=== PATIENT | female | born 1965 ===

== ENCOUNTER 2020-02-06 10:14 | Inpatient (IN) | payer SELFPAY ==
[~2020-02-06] VITALS: Ht 147 cm; Wt 98.6 kg
--- OUTSIDE RECORDS SUMMARY | 2020-02-06 10:34 | XMS REPORT | Continuity of Care Document ---
Author Organization Unknown Address Unknown Phone Unavailable Allergies There is no data. Medications There is no data. Problems There is no data. Procedures There is no data. Results Test Result Range [facility] - 05/03/19 13:16 GLUCOSE 376 mg/dL 65-99 UREA NITROGEN (BUN) 9 mg/dL 7-25 CREATININE 0.64 mg/dL 0.50-1.05 eGFR NON-AFR. COMORAN 103 mL/min/1.73m2 > OR = 60 eGFR 119 mL/min/1.73m2 > OR = 60 BUN/CREATININE RATIO NOT APPLICABLE (calc) 6-22 SODIUM 137 mmol/L 135-146 POTASSIUM 4.1 mmol/L 3.5-5.3 CHLORIDE 103 mmol/L 98-110 CARBON DIOXIDE 27 mmol/L 20-32 CALCIUM 9.5 mg/dL 8.6-10.4 PROTEIN, TOTAL 6.9 g/dL 6.1-8.1 ALBUMIN 4.5 g/dL 3.6-5.1 GLOBULIN 2.4 g/dL (calc) 1.9-3.7 ALBUMIN/GLOBULIN RATIO 1.9 (calc) 1.0-2. 5 BILIRUBIN, TOTAL 0.9 mg/dL 0.2-1.2 ALKALINE PHOSPHATASE 101 U/L 33-130 AST 20 U/L 10-35 ALT 21 U/L 6-29 Encounters ACCT No. Visit Date/Time Discharge Status Pt. Type Provider Facility Loc./Unit Complaint [id number] 01/30/2020 12:30:00 01/30/2020 23:59: 59 CLS Outpatient NABEEL FREEMAN [facility] [id number] 05/03/2019 12:20:00 Document Registration
[2020-02-06] MEDS ORDERED: LACTATED RINGERS 1,000 ML IV STA (10:52)
[2020-02-06 10:59] LABS: BASOPHILS % (AUTO) 0 % (0-10); EOSINOPHILS # (AUTO) 0.2 10^3/uL (0.0-0.3); EOSINOPHILS % (AUTO) 2 % (0-10); HEMATOCRIT 44 % (35-52); HEMOGLOBIN 15.6 G/DL (11.5-16.0); LYMPHOCYTES # (AUTO) 1.5 X 10^3 (1.0-4.0); LYMPHOCYTES % (AUTO) 19 % (12-44); MEAN CORPUSCULAR HEMOGLOBIN 29 PG (25-34); MEAN CORPUSCULAR HGB CONC 36 G/DL (32-36); MEAN CORPUSCULAR VOLUME 81 FL (80-99); MEAN PLATELET VOLUME 11.2 FL (7.4-10.4); MONOCYTES # (AUTO) 0.8 X 10^3 (0.0-1.0); MONOCYTES % (AUTO) 10 % (0-12); NEUTROPHILS # (AUTO) 5.5 X 10^3 (1.8-7.8); NEUTROPHILS % (AUTO) 69 % (42-75); PLATELET COUNT 347 10^3/uL (130-400); RED CELL DISTRIBUTION WIDTH 12.9 % (10.0-14.5); WHITE BLOOD COUNT 7.9 10^3/uL (4.3-11.0)
--- NOTE | 2020-02-06 10:59 | ED General ---
General Chief Complaint: Glucose Problems Stated Complaint: COVID-19+ Nursing Triage Note: ARRIVED VIA WC TO [facility] ER. PT IS A KNOWN POSITIVE ET WAS TESTED ON January OR . FOR THE PAST WEEK SHE HAS HAD TROUBLE WITH HER BLOOD SUGARS BEING HIGH ALONG WITH N/V. PT DOES NOT SPEAK ROMANIAN ET LANGUAGE LINE USED. Nursing Sepsis Screen: No Definite Risk Source of Information: Patient, [employer] Counter Associate Exam Limitations: Language Barrier History of Present Illness Date Seen by Provider: Feb 06, 2020 Time Seen by Provider: 10:41 Initial Comments Here with report of nausea, vomiting and weakness as well as trouble with her blood sugars. She was referred from [facility] to here for concerns of uncontrolled blood sugar. Patient is known to be COVID-19 positive from testing done on January 29. She denies breathing problems but does report weakness and vomiting. Decreased urination recently and decreased bowel movement as well. She was seen at [facility] on 29 January through 30 January. Currently only taking ondansetron. Unsure if she is taking anything for her diabetes as patient stated she had all of her meds with her. All information via elementary supervisor line. Complains of allover body aches. Timing/Duration: 1 Week, Getting Worse Severity: Moderate Modifying Factors: improves with Medication Associated Systoms: No Chest Pain, No Cough, No Fever/Chills; Nausea/Vomiting; No Shortness of Air; Weakness Allergies and Home Medications Allergies Coded Allergies: No Known Drug Allergies (Unverified , 02/06/20) Home Medications Lisinopril/Hydrochlorothiazide 1 Each Tablet, 1 EACH PO DAILY, (Reported) Patient Home Medication List Home Medication List Reviewed: Yes Review of Systems Review of Systems Constitutional: see HPI; No chills, No fever EENTM: No nose congestion, No throat pain Respiratory: No cough, No short of breath Cardiovascular: No chest pain, No edema Gastrointestinal: abdominal pain, constipation, nausea, vomiting Genitourinary: no symptoms reported Musculoskeletal: back pain, muscle pain Skin: no symptoms reported Psychiatric/Neurological: Headache, Weakness Hematologic/Lymphatic: No Symptoms Reported All Other Systems Reviewed Negative Unless Noted: Yes Past Gcisjpi-Acwfmx-Wqlrln Hx Patient Social History Recent Foreign Travel: No Contact w/Someone Who Travel: No Recent Infectious Disease Expo: No Past Medical History Surgeries: No Respiratory: No Cardiac: No Neurological: No Gastrointestinal: No Musculoskeletal: No Endocrine: Yes Diabetes, Non-Insulin dep Family Medical History Reviewed Nursing Family Hx No Pertinent Family Hx Physical Exam-Suspected Sepsis Physical Exam Vital Signs Vital Signs - First Documented 02/06/20 10:35 Temp 36.2 Pulse 93 Resp 18 B/P (MAP) 141/87 (105) Pulse Ox 100 O2 Delivery Room Air Capillary Refill : Less Than 3 Seconds Blood Pressure Mean: 105 Height, Weight, BMI Height: '" Weight: lbs. oz. kg; 49.00 BMI Method: General Appearance: WD/WN HEENT: PERRL/EOMI, Pharynx Normal Neck: Non Tender, Supple Respiratory: Lungs Clear, Normal Breath Sounds Cardiovascular: Regular Rate, Rhythm, No Murmur Gastrointestinal: Non Tender, Soft Back: Normal Inspection, No CVA Tenderness, No Vertebral Tenderness Extremity: Normal Range of Motion, Non Tender Neurologic/Psychiatric: Alert, Oriented x3 Skin: normal color, warm/dry Focused Exam Lactate Level 02/06/20 10:40: Lactic Acid Level 1.50 Lactic Acid Level Laboratory Tests Test 02/06/20 10:40 Lactic Acid Level 1.50 MMOL/L (0.50-2.00) Progress/Results/Core Measures Suspected Sepsis Recent Fever Within 48 Hours: No Infection Criteria Present: Suspected New Infection New/Unexplained Altered Menta: No Sepsis Screen: No Definite Risk SIRS Temperature: Pulse: 93 Respiratory Rate: 18 Laboratory Tests 02/06/20 10:40: White Blood Count 7.9 Blood Pressure 141 /87 Mean: 105 02/06/20 10:40: Lactic Acid Level 1.50 Laboratory Tests 02/06/20 10:40: Creatinine 0.97, INR Comment 1.0, Platelet Count 347, Total Bilirubin 1.3H Results/Orders Lab Results Laboratory Tests Test 02/06/20 10:40 02/06/20 11:28 02/06/20 11:38 Range/Units White Blood Count 7.9 4.3-11.0 10^3/uL Red Blood Count 5.45 4.35-5.85 10^6/uL Hemoglobin 15.6 11.5-16.0 G/DL Hematocrit 44 35-52 % Mean Corpuscular Volume 81 80-99 FL Mean Corpuscular Hemoglobin 29 25-34 PG Mean Corpuscular Hemoglobin Concent 36 32-36 G/DL Red Cell Distribution Width 12.9 10.0-14.5 % Platelet Count 347 130-400 10^3/uL Mean Platelet Volume 11.2 H 7.4-10.4 FL Neutrophils (%) (Auto) 69 42-75 % Lymphocytes (%) (Auto) 19 12-44 % Monocytes (%) (Auto) 10 0-12 % Eosinophils (%) (Auto) 2 0-10 % Basophils (%) (Auto) 0 0-10 % Neutrophils # (Auto) 5.5 1.8-7.8 X 10^3 Lymphocytes # (Auto) 1.5 1.0-4.0 X 10^3 Monocytes # (Auto) 0.8 0.0-1.0 X 10^3 Eosinophils # (Auto) 0.2 0.0-0.3 10^3/uL Basophils # (Auto) 0.0 0.0-0.1 10^3/uL Prothrombin Time 13.1 12.2-14.7 SEC INR Comment 1.0 0.8-1.4 Activated Partial Thromboplast Time 24 24-35 SEC Sodium Level 139 135-145 MMOL/L Potassium Level 3.5 L 3.6-5.0 MMOL/L Chloride Level 97 L 98-107 MMOL/L Carbon Dioxide Level 21 21-32 MMOL/L Anion Gap 21 H 5-14 MMOL/L Blood Urea Nitrogen 24 H 7-18 MG/DL Creatinine 0.97 0.60-1.30 MG/DL Estimat Glomerular Filtration Rate 60 BUN/Creatinine Ratio 25 Glucose Level 432 *H 70-105 MG/DL Lactic Acid Level 1.50 0.50-2.00 MMOL/L Calcium Level 9.4 8.5-10.1 MG/DL Corrected Calcium 9.4 8.5-10.1 MG/DL Total Bilirubin 1.3 H 0.1-1.0 MG/DL Aspartate Amino Transf (AST/SGOT) 25 5-34 U/L Alanine Aminotransferase (ALT/SGPT) 24 0-55 U/L Alkaline Phosphatase 94 40-136 U/L Total Protein 7.2 6.4-8.2 GM/DL Albumin 4.0 3.2-4.5 GM/DL Glucometer 352 H 70-110 MG/DL Urine Color YELLOW Urine Clarity CLEAR Urine pH 6.5 5-9 Urine Specific [place] 1.010 L 1.016-1.022 Urine Protein NEGATIVE NEGATIVE Urine Glucose (UA) 3+ H NEGATIVE Urine Ketones 3+ H NEGATIVE Urine Nitrite NEGATIVE NEGATIVE Urine Bilirubin 1+ H NEGATIVE Urine Urobilinogen 0.2 < = 1.0 MG/DL Urine Leukocyte Esterase NEGATIVE NEGATIVE Urine RBC (Auto) NEGATIVE NEGATIVE Urine RBC RARE /HPF Urine WBC 0-2 /HPF Urine Squamous Epithelial Cells 25-50 H /HPF Urine Crystals NONE /LPF Urine Bacteria FEW H /HPF Urine Casts NONE /LPF Urine Mucus NEGATIVE /LPF Urine Culture Indicated CULTURE PENDING My Orders Orders - JI WORRELL MD Cbc With Automated Diff (02/06/20 10:52) Comprehensive Metabolic Panel (02/06/20 10:52) Blood Culture (02/06/20 10:52) Sputum Culture (02/06/20 10:52) Urinalysis (02/06/20 10:52) Urine Culture (02/06/20 10:52) Protime With Inr (02/06/20 10:52) Partial Thromboplastin Time (02/06/20 10:52) Chest 1 View, Ap/Pa Only (02/06/20 10:52) Ed Iv/Invasive Line Start (02/06/20 10:52) Vital Signs Adult Sepsis Patie Q15M (02/06/20 10:52) O2 (02/06/20 10:52) Remove Rings In Anticipation O (02/06/20 10:52) Lactic Acid Analyzer (02/06/20 10:52) Ondansetron Injection (Zofran Injectio (02/06/20 11:00) Lactated Ringers (Lr 1000 Ml Iv Solution (02/06/20 10:52) Covid-19 External Lab Results (02/06/20 10:59) Ketorolac Injection (Toradol Injection) (02/06/20 11:14) Insulin (Regular) Human (Novolin R (Per (02/06/20 11:23) Lactated Ringers (Lr 1000 Ml Iv Solution (02/06/20 11:37) Dexamethasone Injection (Decadron Inject (02/06/20 12:15) Medications Given in ED Current Medications Medications Dose Ordered Sig/Angel Route Start Time Stop Time Status Last Admin Dose Admin Lactated Ringer's 1,000 ml @ 0 mls/hr Q0M ONCE IV 02/06/20 11:37 02/06/20 11:38 DC 02/06/20 11:40 0 MLS/HR Ondansetron HCl 4 mg ONCE ONCE IVP 02/06/20 11:00 02/06/20 11:01 DC 02/06/20 10:57 4 MG Vital Signs/I&O 02/06/20 10:35 Temp 36.2 Pulse 93 Resp 18 B/P (MAP) 141/87 (105) Pulse Ox 100 O2 Delivery Room Air Capillary Refill : Less Than 3 Seconds Blood Pressure Mean: 105 Progress Note : Progress Note Seen and evaluated. IV, labs, UA, blood cultures and lactic acid ordered. Patient is COVID-19 positive. She appears to be having difficulties with her blood sugar management although I'm not entirely sure what she is on for that as patient is poor historian and there is no indication by external medication history of usage of insulin or other anti-hyperglycemic agents. LR 1 L bolus, Zofran 4 mg IV and sepsis protocol initiated. Monitor patient. 1215: Labs review ed. UA does show 3+ ketones. Patient is still nauseated. She was given insulin 10 units subcutaneous and a second liter of LR as well as 30 mg of Toradol IV. I did discuss the case with Dr. Sagastume who was taking the COVID positive patient's. We both agree that patient would benefit from inpatient admission due to the persistent nausea and vomiting and uncontrolled blood sugars in the setting of COVID-19 infection. We will give Decadron 6 mg IV now. Patient also received Pepcid 20 mg IV for stomach upset. I did discuss findings and concerns with the patient via elementary supervisor line and she agrees with admission. Diagnostic Imaging Diagonstic Imaging: Xray Plain Films/CT/US/NM/MRI: chest Comments [facility]. [place], [place] NAME: BALA BECKER [facility] REC#: [id number] PT STATUS: REG ER : 1965 PHYSICIAN: JI WORRELL MD ADMIT DATE: 02/06/20/ER Draft Date of Exam:02/06/20 CHEST 1 VIEW, AP/PA ONLY INDICATION: Positive COVID. Time of exam: 11:10 AM No prior studies are available for comparison. The heart size is normal. The pulmonary vascularity is unremarkable. The lungs are clear. No infiltrate, effusion or pneumothorax is detected. IMPRESSION: No acute cardiopulmonary process is detected. Dictated on workstation # [id number] Dict: 02/06/20 1116 Trans: 02/06/20 1118 [facility] [id number] Interpreted by: SEMAJ CABRALES MD Electronically signed by: Reviewed: Reviewed by Me Departure Communication (Admissions) Time/Spoke to Admitting Phy: 12:15 Impression Primary Impression: Intractable nausea and vomiting Additional Impressions: Uncontrolled diabetes mellitus with hyperglycemia Qualified Codes: E11.65 - Type 2 diabetes mellitus with hyperglycemia Coronavirus infection COVID-19 positive Disposition: ADMITTED INPATIENT Condition: Stable Admissions Decision to Admit Reason: Admit from ER (General) Decision to Admit/Date: Feb 06, 2020 Time/Decision to Admit Time: 12:15 JI WORRELL MD Feb 06, 2020 10:59
[2020-02-06] MEDS ORDERED: ONDANSETRON 4 MG/2 ML (SDV) Z0FRAN IVP ONE (11:00)
[2020-02-06 11:04] LABS: PROTHROMBIN TIME PATIENT 13.1 SEC (12.2-14.7)
[2020-02-06] MEDS ORDERED: LISI1TAB25 PO (11:04)
[2020-02-06 11:05] LABS: POTASSIUM 3.5 MMOL/L (3.6-5.0)
[2020-02-06 11:06] LABS: CALCIUM 9.4 MG/DL (8.5-10.1)
[2020-02-06 11:07] LABS: TOTAL PROTEIN 7.2 GM/DL (6.4-8.2)
[2020-02-06 11:09] LABS: BILIRUBIN,TOTAL 1.3 MG/DL (0.1-1.0)
[2020-02-06 11:11] LABS: CREATININE SERUM 0.97 MG/DL (0.60-1.30)
[2020-02-06] MEDS ORDERED: KETOROLAC 30 MG/ML VIAL IVP STA (11:14)
--- NOTE | 2020-02-06 11:18 | Diagnostic Imaging Report ---
INDICATION: Positive COVID. Time of exam: 11:10 AM No prior studies are available for comparison. The heart size is normal. The pulmonary vascularity is unremarkable. The lungs are clear. No infiltrate, effusion or pneumothorax is detected. IMPRESSION: No acute cardiopulmonary process is detected. Dictated by: Dictated on workstation # [id number]
[2020-02-06] MEDS ORDERED: inSUlin (REGULAR) HUMAN 1 UNIT/0.01 ML (CHARGE PER UNIT) SC STA (11:23)
[2020-02-06] MEDS ORDERED: LACTATED RINGERS 1,000 ML IV ONE (11:37)
[2020-02-06 11:46] LABS: CLARITY,URINE CLEAR; COLOR,URINE YELLOW; GLUCOSE, URINE (UA) 3+ (NEGATIVE); KETONES,URINE 3+ (NEGATIVE); LEUKOCYTE ESTERASE ,URINE NEGATIVE (NEGATIVE); NITRITE,URINE NEGATIVE (NEGATIVE); PH,URINE 6.5 (5-9); PROTEIN,URINE NEGATIVE (NEGATIVE)
[2020-02-06 12:01] LABS: BILIRUBIN,URINE 1+ (NEGATIVE)
[2020-02-06 12:02] LABS: BACTERIA,URINE FEW /HPF; RBC,URINE RARE /HPF; SQUAMOUS EPITHELIAL CELL,UR 25-50 /HPF; WBC,URINE 0-2 /HPF
[2020-02-06] MEDS ORDERED: DEXAMETHASONE 10 MG/ML (DECADRON) 1 ML VIAL IV ONE (12:15)
--- NOTE | 2020-02-06 12:19 | NUR ---
TRICK RODEO RIDER CONTACTED FOR ROOM AND ORDERS FAXED TO [facility] AND REGISTRATION.
--- NOTE | 2020-02-06 12:27 | NUR ---
ATTEMPT TO CALL REPORT ET NURSE DID NOT ANSWER.
[2020-02-06] MEDS ORDERED: FAMOTIDINE 20MG/2ML IV (PEPCID) IVP ONE (12:30)
--- NOTE | 2020-02-06 12:35 | NUR ---
REPORT CALLED TO STEPHEN ON 4TH FLOOR.
[2020-02-06] MEDS ORDERED: fentaNYL INJECTION 100 MCG/2 ML AMP ONE (12:43)
--- NOTE | 2020-02-06 12:45 | NUR ---
DR NOTIFIED OF BP 152/100 AND THAT PT IS COMPLAINING OF ABD PAIN. NEW ORDERS RECIEVED.
[2020-02-06] MEDS ORDERED: fentaNYL INJECTION 100 MCG/2 ML AMP IVP STA (12:52)
--- NOTE | 2020-02-06 13:06 | NUR ---
PT'S BLOOD PRESSURE HAS DECREASED TO 147/89.
--- NOTE | 2020-02-06 13:35 | NUR ---
PT ADMITTED TO ROOM 432, POSITIVE COVID. A/O X4. ORIENTED TO ROOM/CALL LIGHT. LANGUAGE LINE USED FOR ADMISSION.
--- NOTE | 2020-02-06 13:38 | NUR ---
DEBRA'S DAUGHTER CANDICE CELL NUMBER [phone]
[2020-02-06 14:06] VITALS: BP 189/96
[2020-02-06] MEDS ORDERED: ONDANSETRON 4 MG/2 ML (SDV) Z0FRAN IV PRN (14:15)
[2020-02-06] MEDS: NS IV 1000 ML 1,000 ML IV SCH ×2 (14:26→21:11)
[2020-02-06 14:28] VITALS: BP 141/89
[2020-02-06] MEDS ORDERED: CATHETER FLUSH 10 ML SYR IV PRN (14:30)
[2020-02-06] MEDS ORDERED: ACETAMINOPHEN 500 MG TAB (TYLENOL) PO PRN (14:30)
--- NOTE | 2020-02-06 14:36 | History & Physical-Hospitalist ---
History of Present Illness HPI/Chief Complaint Pt is a 54yoCF with a PMH of NIDDMII and HTN who presented to the ER due to nausea and vomiting. She was recently at [facility] and was diagnosed with COVID19 on 01/30/2020. She was discharged on Zofran and Azithromycin. She has been unable to tolerate this at home and has been vomiting for the last 8 days. She states she has been so dehydrated that she passed out twice two days ago as well. She does report feeling better since coming to the hospital but still quite dizzy. She denies any shortness of breath or chest pain. Source: patient Exam Limitations: language barrier (language line used) Date Seen 02/06/20 Time Seen by a Provider: 14:30 Attending Physician Shanelle Sagastume MD PCP Referring Physician Date of Admission Feb 06, 2020 at 13:43 Home Medications & Allergies Home Medications Reviewed patient Home Medication Reconciliation performed by pharmacy medication reconciliations hotel maintenance technician and/or nursing. Patients Allergies have been reviewed. Allergies Allergies Coded Allergies No Known Drug Allergies (Unverified02/06/20) Past Uuweuoc-Uumltz-Fttige Hx Past Med/Social Hx: Reviewed Nursing Past Med/Soc Hx Patient Social History Alcohol Use: Denies Use Recreational Drug Use: No Smoking Status: Never a Smoker Recent Foreign Travel: No Contact w/other who traveled: No Recent Hopitalizations: No Recent Infectious Disease Expo: No Past Medical History Cardiac: Hypertension Endocrine: Diabetes, Non-Insulin dep Family History Reviewed Nursing Family Hx No Pertinent Family Hx Review of Systems Constitutional: No chills, No fever; weakness EENTM: no symptoms reported Respiratory: No cough, No short of breath Cardiovascular: No chest pain, No edema Gastrointestinal: nausea, vomiting Genitourinary: no symptoms reported Musculoskeletal: no symptoms reported Skin: no symptoms reported Psychiatric/Neurological: No Symptoms Reported Physical Exam Physical Exam Vital Signs Vital Signs - First Documented 02/06/20 10:35 Temp 36.2 Pulse 93 Resp 18 B/P (MAP) 141/87 (105) Pulse Ox 100 O2 Delivery Room Air Capillary Refill : Less Than 3 Seconds Height, Weight, BMI Height: '" Weight: lbs. oz. kg; 49.42 BMI Method: General Appearance: No Apparent Distress, Obese HEENT: PERRL/EOMI, Other (patient wearing mask and unable to assess mucous membranes) Neck: Normal Inspection, Supple Respiratory: Lungs Clear, No Accessory Muscle Use, No Respiratory Distress Cardiovascular: Regular Rate, Rhythm, No Murmur, Normal Peripheral Pulses Gastrointestinal: Normal Bowel Sounds, Non Tender, Soft Extremity: No Calf Tenderness, No Pedal Edema Neurologic/Psychiatric: Alert, Oriented x3, Normal Mood/Affect Results Results/Procedures Labs Laboratory Tests 02/06/20 10:40 Patient resulted labs reviewed. Imaging: Reviewed Imaging Report Imaging [facility] [place] NAME: BALA BECKER [facility] REC#: [id number] PT STATUS: REG ER : 1965 PHYSICIAN: JI WORRELL MD ADMIT DATE: 02/06/20/ER Draft Date of Exam:02/06/20 CHEST 1 VIEW, AP/PA ONLY INDICATION: Positive COVID. Time of exam: 11:10 AM No prior studies are available for comparison. The heart size is normal. The pulmonary vascularity is unremarkable. The lungs are clear. No infiltrate, effusion or pneumothorax is detected. IMPRESSION: No acute cardiopulmonary process is detected. Dictated on workstation # [id number] Dict: 02/06/20 1116 Trans: 02/06/20 [facility]8 [facility] [id number] Interpreted by: SEMAJ CABRALES MD Electronically signed by: Assessment/Plan Admission Diagnosis COVID19 Admission Status: Inpatient Order (span 2 midnights) Reason for Inpatient Admission: failed outpatient management Assessment and Plan COVID19 intractable nausea and vomiting Maintain oxygen saturation on room air Zofran and Phenergan for nausea Continue IVF CLD- advance as she tolerates NIDDMII Very elevated on arrival SSI ordered Hold home metformin due to GI upset HTN BP within goal Resume home meds if able to tolerate PO DVT ppx: lovenox Diagnosis/Problems Diagnosis/Problems (1) Coronavirus infection (2) Essential (primary) hypertension (3) Non-insulin dependent type 2 diabetes mellitus (4) Intractable nausea and vomiting (5) Prophylactic measure SHANELLE SAGASTUME MD Feb 06, 2020 14:36
[2020-02-06] MEDS: ONDANSETRON 4 MG/2 ML (SDV) Z0FRAN IV PRN (14:39)
[2020-02-06] MEDS ORDERED: PROMETHAZINE INJ 25 MG/ML (PHENERGAN) AMP IVP PRN (14:45)
[2020-02-06] MEDS ORDERED: ONDANSETRON 4 MG/2 ML (SDV) Z0FRAN IVP PRN (14:45)
[2020-02-06] MEDS ORDERED: fentaNYL INJECTION 100 MCG/2 ML AMP IVP PRN (14:45)
[2020-02-06] MEDS ORDERED: NITROGLYCERIN 2% OINT 1 GM UNIT DOSE PACKET TOP PRN (14:45)
[2020-02-06] MEDS ORDERED: inSUlin ASPART (NovoLOG) 1 UNIT/0.01 ML (CHARGE PER UNIT) SC SCH (15:00)
[2020-02-06] MEDS ORDERED: ENOXAPARIN 40 MG/0.4 ML (LOVENOX) SYR SC SCH (15:00)
--- OUTSIDE RECORDS SUMMARY | 2020-02-06 15:00 | XMS REPORT | Continuity of Care Document ---
Author Organization Unknown Address Unknown Phone Unavailable Allergies There is no data. Medications There is no data. Problems There is no data. Procedures There is no data. Results Test Result Range CMP - 05/03/19 13:16 GLUCOSE 376 mg/dL 65-99 UREA NITROGEN (BUN) 9 mg/dL 7-25 CREATININE 0.64 mg/dL 0.50-1.05 eGFR NON-AFR. NICARAGUAN 103 mL/min/1.73m2 > OR = 60 eGFR [...] 20 U/L 10-35 ALT 21 U/L 6-29 Complete blood count (CBC) with automate d white blood cell (WBC) differential - 02/06/20 10:40 Blood leukocytes automated count (number/volume) 7.9 10*3/uL 4.3-11.0 Blood erythrocytes automated count (number/volume) 5.45 10*6/uL 4.35-5.85 Venous blood hemoglobin measurement (mass/volume) 15.6 g/dL 11.5-16.0 Blood hematocrit (volume fraction) 44 % 35-52 Automated erythrocyte mean corpuscular volume 81 [ foz_us] 80-99 Automated erythrocyte mean corpuscular h emoglobin (mass per erythrocyte) 29 pg 25-34 Automated erythrocyte mean corpuscular h emoglobin concentration measurement (mass/volume) 36 g/dL 32-36 Automated erythrocyte distribution width ratio 12. 9 % 10.0- 14.5 Automated blood platelet count (count/volume) 347 10*3/uL 130-400 Automated blood platelet mean volume measurement 11.2 [foz_us] 7.4-10.4 Automated blood neutrophils/100 leukocytes 69 % 42-75 Automated blood lymphocytes/100 leukocytes 19 % 12-44 Blood monocytes/100 leukocytes 10 % 0-12 Automated blood eosinophils/100 leukocytes 2 % 0-10 Automated blood basophils/100 leukocytes 0 % 0-10 Blood neutrophils automated count (number/volume) 5.5 10*3 1.8-7.8 Blood lymphocytes automated count (number/volume) 1.5 10*3 1.0-4.0 Blood monocytes automated count (number/volume) 0. 8 10*3 0.0-1.0 Automated eosinophil count 0.2 10*3/uL 0 .0-0.3 Automated blood basophil count (count/volume) 0.0 10*3/uL 0.0-0.1 Comprehensive metabolic panel - 02/06/20 10:40 Serum or plasma sodium measurement (moles/volume) 139 mmol/L 135-145 Serum or plasma potassium measurement (moles/volume) 3.5 mmol/L 3.6-5.0 Serum or plasma chloride measurement (moles/volume) 97 mmol/L 98-107 Carbon dioxide 21 mmol/L 21-32 Serum or plasma anion gap determination (moles/volume) 21 mmol/L 5-14 Serum or plasma urea nitrogen measurement (mass/volume ) 24 mg/dL 7-18 Serum or plasma creatinine measurement (mass/volume) 0.97 mg/dL 0.60-1.30 Serum or plasma urea nitrogen/creatinine mass ratio 25 NRG Serum or plasma creatinine measurement w ith calculation of estimated glomerular filtration rate 60 NRG Serum or plasma glucose measurement (mass/volume) 432 mg/dL 70-105 Serum or plasma calcium measurement (mass/volume) 9.4 mg/dL 8.5-10.1 Serum or plasma total bilirubin measurement (mass/volu me) 1.3 mg/dL 0.1-1.0 Serum or plasma alkaline phosphatase yousuf surement (enzymatic activity/volume) 94 U/L 40-136 Serum or plasma aspartate aminotransfera se measurement (enzymatic activity/volume) 25 U/L 5-34 Serum or plasma alanine aminotransferase measurement (enzymatic activity/volume) 24 U/L 0-55 Serum or plasma protein measurement (mass/volume) 7.2 g/dL 6.4-8.2 Serum or plasma albumin measurement (mass/volume) 4.0 g/dL 3.2-4.5 CALCIUM CORRECTED 9.4 mg/dL 8.5-10.1 PT panel in platelet poor plasma by coag ulation assay - 02/06/20 10:40 Prothrombin time (PT) in platelet poor plasma by coagu lation assay 13.1 s 12.2-14.7 INR in platelet poor plasma or blood by coagulation as say 1.0 0.8-1.4 Activated partial thromboplastin time (a PTT) in platelet poor plasma bycoagulation assay - 02/06/20 10:40 Activated partial thromboplastin time (a PTT) in platelet poor plasma bycoagulation assay 24 s 24-35 Blood lactic acid measurement (moles/vol ume) - 02/06/20 10:40 Blood lactic acid measurement (moles/volume) 1.50 mmol/L 0.50-2.00 Capillary blood glucose measurement by g lucometer (mass/volume) - 02/06/20 11:28 Capillary blood glucose measurement by glucometer (mas s/volume) 352 mg/dL 70-110 Complete urinalysis with reflex to cultu re - 02/06/20 11:38 Urine color determination YELLOW NRG Urine clarity determination CLEAR NR G Urine pH measurement by test strip 6.5 5-9 Specific gravity of urine by test strip 1.010 1.016-1.022 Urine protein assay by test strip, semi-quantitative NEGATIVE NEGATIVE Urine glucose detection by automated test strip 3+ NEGATIVE Erythrocytes detection in urine sediment by light micr oscopy NEGATIVE NEGATIVE Urine ketones detection by automated test strip 3+ NEGATIVE Urine nitrite detection by test strip NEGATIVE NEGATIVE Urine total bilirubin detection by test strip 1+ NEGATIVE Urine urobilinogen measurement by automated test strip (mass/volume) 0.2 mg/dL < = 1.0 Urine leukocyte esterase detection by dipstick NEG ATIVE NEGATIVE Automated urine sediment erythrocyte cou nt by microscopy (number/high power field) RARE NRG Automated urine sediment leukocyte count by microscopy (number/high power field) [HPF] NRG Bacteria detection in urine sediment by light microsco py FEW NRG Squamous epithelial cells detection in u rine sediment by light microscopy 25-50 NRG Crystals detection in urine sediment by light microsco py NONE NRG Casts detection in urine sediment by light microscopy NONE NRG Mucus detection in urine sediment by light microscopy NEGATIVE NRG Complete urinalysis with reflex to culture CULTURE PENDING NRG Capillary blood glucose measurement by g lucometer (mass/volume) - 02/06/20 14:25 Capillary blood glucose measurement by glucometer (mas s/volume) 302 mg/dL 70-110 Encounters ACCT No. Visit Date/Time Discharge Status Pt. Type Provider Facility Loc./Unit Complaint [id number] 01/30/2020 12:30:00 01/30/2020 23:59: 59 CLS Outpatient NABEEL FREEMAN [facility] [id number] 05/03/2019 12:20:00 Document Registration [id number] 02/06/2020 11:00:00 Document Registration
[2020-02-06] MEDS: ENOXAPARIN 40 MG/0.4 ML (LOVENOX) SYR SC SCH (17:38)
[2020-02-06] MEDS: ACETAMINOPHEN 325 MG TABLET PO PRN (17:39)
[2020-02-06 17:43] VITALS: BP 141/90
--- NOTE | 2020-02-06 18:32 | NUR ---
PT HAS NOT URINATED SINCE ARRIVAL TO THIS FLOOR, DR PARNELL NOTIFIED AND NOTIFIED OF ELEVATED BLOOD SUGAR. BLADDER SCANNED AND SHOWED 125 PRESENT. NEW ORDER FOR 10UNITS OF NOVOLOG PLACED. ACCU CHECKS CHANGED TO ACHS.
[2020-02-06] MEDS ORDERED: inSUlin ASPART (NovoLOG) 1 UNIT/0.01 ML (CHARGE PER UNIT) SC ONE (18:45)
[2020-02-06 20:56] VITALS: BP 123/71
[2020-02-06] MEDS: inSUlin ASPART (NovoLOG) 1 UNIT/0.01 ML (CHARGE PER UNIT) SC SCH (21:12)
[2020-02-07] VITALS (7 sets, daily range): BP systolic 137–179; BP diastolic 65–91
[2020-02-07] MEDS: ENOXAPARIN 40 MG/0.4 ML (LOVENOX) SYR SC SCH ×2 (04:33→17:00)
[2020-02-07] MEDS: NS IV 1000 ML 1,000 ML IV SCH ×3 (04:33→20:00)
[2020-02-07 04:49] LABS: BASOPHILS % (AUTO) 0 % (0-10); EOSINOPHILS % (AUTO) 1 % (0-10); HEMATOCRIT 41 % (35-52); HEMOGLOBIN 14.7 G/DL (11.5-16.0); LYMPHOCYTES # (AUTO) 1.4 X 10^3 (1.0-4.0); LYMPHOCYTES % (AUTO) 25 % (12-44); MEAN CORPUSCULAR HEMOGLOBIN 29 PG (25-34); MEAN CORPUSCULAR HGB CONC 36 G/DL (32-36); MEAN CORPUSCULAR VOLUME 81 FL (80-99); MEAN PLATELET VOLUME 10.8 FL (7.4-10.4); MONOCYTES # (AUTO) 0.5 X 10^3 (0.0-1.0); MONOCYTES % (AUTO) 8 % (0-12); NEUTROPHILS # (AUTO) 3.6 X 10^3 (1.8-7.8); NEUTROPHILS % (AUTO) 66 % (42-75); PLATELET COUNT 284 10^3/uL (130-400); RED CELL DISTRIBUTION WIDTH 12.9 % (10.0-14.5); WHITE BLOOD COUNT 5.5 10^3/uL (4.3-11.0)
[2020-02-07 04:58] LABS: ALBUMIN 3.4 GM/DL (3.2-4.5); CHLORIDE 103 MMOL/L (98-107); SODIUM 140 MMOL/L (135-145)
[2020-02-07 04:59] LABS: CALCIUM 8.1 MG/DL (8.5-10.1)
[2020-02-07 05:00] LABS: GLUCOSE 169 MG/DL (70-105)
[2020-02-07 05:01] LABS: CARBON DIOXIDE 25 MMOL/L (21-32)
[2020-02-07 05:02] LABS: BILIRUBIN,TOTAL 0.8 MG/DL (0.1-1.0)
[2020-02-07 05:04] LABS: ALKALINE PHOSPHATASE 73 U/L (40-136); CREATININE SERUM 0.73 MG/DL (0.60-1.30); GFR ESTIMATED > 60
[2020-02-07 05:05] LABS: BUN/CREATININE RATIO 26
[2020-02-07 05:07] LABS: ALANINE AMINOTRANSFERASE 16 U/L (0-55)
[2020-02-07] MEDS: inSUlin ASPART (NovoLOG) 1 UNIT/0.01 ML (CHARGE PER UNIT) SC SCH ×4 (06:27→20:00)
[2020-02-07] MEDS: FAMOTIDINE 20MG/2ML IV (PEPCID) IV SCH (08:52)
[2020-02-07] MEDS: ACETAMINOPHEN 325 MG TABLET PO PRN ×2 (08:53→20:05)
--- NOTE | 2020-02-07 09:04 | NUR ---
PT HAS NOT HAD ANY NAUSEA OR VOMITING SINCE YESTERDAY. SHE SAYS SHE IS HUNGRY. DR PARNELL OK'D ORDER FOR REGULAR TRAY. PT DID EAT MOST OF CLEAR LIQUID TRAY THIS MORNING.
[2020-02-07] MEDS ORDERED: DEXAMETHASONE 4 MG/ML SDV (DECADRON) IV SCH (12:00)
--- NOTE | 2020-02-07 12:09 | Progress Note - Hospitalist ---
Subjective HPI/CC On Admission Date Seen by Provider: Feb 07, 2020 Time Seen by Provider: 12:04 Pt is a 54yoCF with a PMH of NIDDMII and HTN who presented to the ER due to nausea and vomiting. She was recently at [place] and was diagnosed with COVID19 on 01/30/2020. She was discharged on Zofran and Azithromycin. She has been unable to tolerate this at home and has been vomiting for the last 8 days. She states she has been so dehydrated that she passed out twice two days ago as well. She does report feeling better since coming to the hospital but still quite dizzy. She denies any shortness of breath or chest pain. Subjective/Events-last exam Pt reports feeling much better today. Still gets dizzy with ambulation but would like to try and eat today and has not vomited or felt nauseated. Focused Exam Lactate Level 02/06/20 10:40: Lactic Acid Level 1.50 Objective Exam Vital Signs Vital Signs Date Time Temp Pulse Resp B/P (MAP) Pulse Ox O2 Delivery O2 Flow Rate FiO2 02/07/20 08:39 36.0 55 18 155/89 (111) 93 Room Air Capillary Refill : Less Than 3 Seconds General Appearance: No Apparent Distress, WD/WN, Obese Respiratory: Lungs Clear, No Accessory Muscle Use, No Respiratory Distress Cardiovascular: Regular Rate, Rhythm, No Murmur Gastrointestinal: Normal Bowel Sounds, Non Tender, Soft Neurologic/Psychiatric: Alert, Oriented x3 Results/Procedures Lab Laboratory Tests 02/07/20 04:15 Patient resulted labs reviewed. Imaging: Reviewed Imaging Report Assessment/Plan Assessment and Plan Assess & Plan/Chief Complaint COVID19 intractable nausea and vomiting Maintaining oxygen saturation on room air Zofran and Phenergan for nausea Continue IVF Start regular diet NIDDMII BS much improved SSI ordered Hold home metformin due to GI upset HTN BP within goal Resume lisinopril DVT ppx: lovenox Diagnosis/Problems Diagnosis/Problems (1) Coronavirus infection (2) Essential (primary) hypertension (3) Non-insulin dependent type 2 diabetes mellitus (4) Intractable nausea and vomiting (5) Prophylactic measure Clinical Quality Measures DVT/VTE Risk/Contraindication: Risk Factor Score Per Nursin RFS Level Per Nursing on Admit: 2=Moderate SHANELLE PARNELL MD Feb 07, 2020 12:09
[2020-02-07] MEDS ORDERED: lisINopril 20 MG (PRINIVIL) TABLET PO NR (12:15)
[2020-02-07] MEDS: DEXAMETHASONE 4 MG TAB (DECADRON) PO SCH (12:59)
[2020-02-07] MEDS: POTASSIUM CL 10MEQ/50ML IVPB 50 ML IV SCH ×3 (13:00→16:18)
[2020-02-07] MEDS ORDERED: IBUP200C11 PO (15:52)
[2020-02-07] MEDS ORDERED: METF750T45 PO (15:52)
--- NOTE | 2020-02-07 15:55 | NUR ---
SPOKE WITH THE PATIENTS DAUGHTER (CANDICE) CALLED [facility] AND [facility] TO COMPLETE THE MED REC METFORMIN ER 750MG #60/30DS 09-20-2019- I DID DOCUMENT THE PAST DUE FILL ON THE MED REC LISINOPRIL/HCTZ 20/12.5MG LAST FILLED 10-21-2019 #30 AND THEN AGAIN ON 09-20-2019 #90 THE ER NOTE MENTIONED AN ANTIBIOTIC AND ANTINAUSEA MED- WHEN I SPOKE WITH CANDICE I ASKED ABOUT THIS. SHE LET ME KNOW THE PT WENT TO [facility] LAST WEEK AND THEY DID GIVE HER AN ANTIBIOTIC BUT WHEN SHE RETURNED A DAY LATER THEY TOLD HER TO QUIT TAKING IT. CANDICE ALSO LET ME KNOW THE PT WASNT TAKING THE ANTINAUSEA MED SINCE HE MADE HER MORE NAUSEOUS. FOR THESE REASONS I WILL NOT INCLUDE THEM ON THE MED REC OTC MEDS: ADVIL Addendum: 02/07/20 at 1605 by TARIQ MEI CPhT [facility]- THE DATES LISTED ABOVE ARE INFORMATION FROM BOTH
[2020-02-07] MEDS ORDERED: MELATONIN 3 MG TABLET PO PRN (20:45)
[2020-02-08] MEDS: ENOXAPARIN 40 MG/0.4 ML (LOVENOX) SYR SC SCH ×2 (05:24→15:55)
[2020-02-08] MEDS: ONDANSETRON 4 MG/2 ML (SDV) Z0FRAN IV PRN ×2 (05:24→11:52)
[2020-02-08] MEDS: inSUlin ASPART (NovoLOG) 1 UNIT/0.01 ML (CHARGE PER UNIT) SC SCH ×4 (05:29→20:48)
[2020-02-08 05:36] LABS: HEMOGLOBIN 12.6 G/DL (11.5-16.0); MEAN PLATELET VOLUME 10.9 FL (7.4-10.4); RED CELL DISTRIBUTION WIDTH 12.4 % (10.0-14.5); WHITE BLOOD COUNT 6.2 10^3/uL (4.3-11.0)
[2020-02-08 05:53] LABS: CHLORIDE 105 MMOL/L (98-107); POTASSIUM 3.2 MMOL/L (3.6-5.0); SODIUM 137 MMOL/L (135-145)
[2020-02-08 05:54] LABS: CALCIUM 8.1 MG/DL (8.5-10.1); GLUCOSE 272 MG/DL (70-105)
[2020-02-08 05:56] LABS: CARBON DIOXIDE 20 MMOL/L (21-32)
[2020-02-08 05:58] LABS: CREATININE SERUM 0.74 MG/DL (0.60-1.30); GFR ESTIMATED > 60
[2020-02-08 05:59] LABS: BUN/CREATININE RATIO 14
[2020-02-08] MEDS: FAMOTIDINE 20MG/2ML IV (PEPCID) IV SCH (07:45)
[2020-02-08] MEDS: ACETAMINOPHEN 325 MG TABLET PO PRN ×2 (07:46→16:02)
[2020-02-08] MEDS: lisINopril 20 MG (PRINIVIL) TABLET PO SCH (07:46)
[2020-02-08 07:47] VITALS: BP 163/82
[2020-02-08] MEDS: NS IV 1000 ML 1,000 ML IV SCH ×2 (09:36→20:48)
--- NOTE | 2020-02-08 10:50 | Physical Therapy Progress Note ---
Therapy Progress Note Patient is up ad khris and independently in room per RN Gabby. RN reports patient just lacks motivation. PT consulted with RN on encouraging patient to be up more in room to improve pulmonary function. PT will reassess need next week. JAYDEN GARCES PT Feb 08, 2020 10:50
[2020-02-08] MEDS: DEXAMETHASONE 4 MG TAB (DECADRON) PO SCH (11:52)
--- NOTE | 2020-02-08 11:55 | Progress Note - Hospitalist ---
Subjective HPI/CC On Admission Date Seen by Provider: Feb 08, 2020 Time Seen by Provider: 11:50 Pt is a 54yoCF with a PMH of NIDDMII and HTN who presented to the ER due to nausea and vomiting. She was recently at [place] and was diagnosed with COVID19 on 01/30/2020. She was discharged on Zofran and Azithromycin. She has been unable to tolerate this at home and has been vomiting for the last 8 days. She states she has been so dehydrated that she passed out twice two days ago as well. She does report feeling better since coming to the hospital but still quite dizzy. She denies any shortness of breath or chest pain. Subjective/Events-last exam Pt reports feeling a little worse today. More nauseated but has not vomited. Still dizzy. Had a rough night and didn't sleep well. Focused Exam Lactate Level 02/06/20 10:40: Lactic Acid Level 1.50 Objective Exam Vital Signs Vital Signs Date Time Temp Pulse Resp B/P (MAP) Pulse Ox O2 Delivery O2 Flow Rate FiO2 02/08/20 08:16 Room Air 02/08/20 07:47 70 19 163/82 (109) 96 02/07/20 23:53 36.6 Capillary Refill : Less Than 3 Seconds General Appearance: No Apparent Distress, WD/WN, Obese Respiratory: Lungs Clear, No Accessory Muscle Use, No Respiratory Distress Cardiovascular: Regular Rate, Rhythm, No Murmur Gastrointestinal: Normal Bowel Sounds, Non Tender, Soft Neurologic/Psychiatric: Alert, Oriented x3, Normal Mood/Affect Results/Procedures Lab Laboratory Tests 02/08/20 05:25 Patient resulted labs reviewed. Imaging: Reviewed Imaging Report Assessment/Plan Assessment and Plan Assess & Plan/Chief Complaint COVID19 intractable nausea and vomiting Dizziness Maintaining oxygen saturation on room air Zofran and Phenergan for nausea Continue IVF Continue regular diet as tolerates PT ordered Meclizine added NIDDMII BS much improved SSI ordered Hold home metformin due to GI upset HTN BP within goal Resume lisinopril Hypokalemia Replace K Check Mag DVT ppx: lovenox Diagnosis/Problems Diagnosis/Problems (1) Coronavirus infection (2) Essential (primary) hypertension (3) Non-insulin dependent type 2 diabetes mellitus (4) Intractable nausea and vomiting (5) Prophylactic measure Clinical Quality Measures DVT/VTE Risk/Contraindication: Risk Factor Score Per Nursin RFS Level Per Nursing on Admit: 2=Moderate SHANELLE PARNELL MD Feb 08, 2020 11:55
[2020-02-08] MEDS ORDERED: diphenhydrAMINE 25 MG TAB (BENADRYL) PO PRN (12:00)
[2020-02-08] MEDS ORDERED: MECLIZINE 25 MG (ANTIVERT) TAB PO PRN (12:00)
[2020-02-08] MEDS: POTASSIUM CL 10MEQ/50ML IVPB 50 ML IV SCH ×2 (12:33→12:34)
[2020-02-08 15:54] VITALS: BP 189/85
[2020-02-08 16:46] VITALS: BP 170/90
--- NOTE | 2020-02-08 16:57 | NUR ---
REPORT RECEIVED FROM JAMI DIXON. WILL RESUME CARE AT THIS TIME
[2020-02-08 18:01] VITALS: BP 169/89
[2020-02-08 20:30] VITALS: BP 132/79
[2020-02-08 23:37] VITALS: BP 158/88
[2020-02-09] MEDS: ENOXAPARIN 40 MG/0.4 ML (LOVENOX) SYR SC SCH ×2 (04:53→17:35)
[2020-02-09 05:22] LABS: HEMOGLOBIN 12.7 G/DL (11.5-16.0); MEAN PLATELET VOLUME 10.8 FL (7.4-10.4); RED CELL DISTRIBUTION WIDTH 12.9 % (10.0-14.5); WHITE BLOOD COUNT 6.3 10^3/uL (4.3-11.0)
[2020-02-09 05:32] LABS: CHLORIDE 104 MMOL/L (98-107)
[2020-02-09 05:33] LABS: POTASSIUM 3.2 MMOL/L (3.6-5.0); SODIUM 137 MMOL/L (135-145)
[2020-02-09 05:34] LABS: GLUCOSE 260 MG/DL (70-105)
[2020-02-09 05:36] LABS: CARBON DIOXIDE 21 MMOL/L (21-32)
[2020-02-09 05:38] LABS: CREATININE SERUM 0.65 MG/DL (0.60-1.30); GFR ESTIMATED > 60
[2020-02-09 05:39] LABS: BUN/CREATININE RATIO 12
[2020-02-09] MEDS: inSUlin ASPART (NovoLOG) 1 UNIT/0.01 ML (CHARGE PER UNIT) SC SCH ×4 (06:17→21:09)
[2020-02-09] MEDS: lisINopril 20 MG (PRINIVIL) TABLET PO SCH (07:43)
[2020-02-09] MEDS: FAMOTIDINE 20MG/2ML IV (PEPCID) IV SCH (07:43)
[2020-02-09 07:45] VITALS: BP 185/97
[2020-02-09] MEDS ORDERED: SENNA W/DOCUSATE (SENOKOT S) TABLET PO PRN (09:45)
--- NOTE | 2020-02-09 12:18 | Progress Note - Hospitalist ---
Subjective HPI/CC On Admission Date Seen by Provider: Feb 09, 2020 Time Seen by Provider: 12:14 Pt is a 54yoCF with a PMH of NIDDMII and HTN who presented to the ER due to nausea and vomiting. She was recently at [place] and was diagnosed with COVID19 on 01/30/2020. She was discharged on Zofran and Azithromycin. She has been unable to tolerate this at home and has been vomiting for the last 8 days. She states she has been so dehydrated that she passed out twice two days ago as well. She does report feeling better since coming to the hospital but still quite dizzy. She denies any shortness of breath or chest pain. Subjective/Events-last exam Pt reports feeling somewhat better today but still getting nauseated. needed Zofran IV yesterday still. Objective Exam Vital Signs Vital Signs Date Time Temp Pulse Resp B/P (MAP) Pulse Ox O2 Delivery O2 Flow Rate FiO2 02/09/20 08:00 Room Air 02/09/20 07:45 36.8 53 22 185/97 (126) 98 Capillary Refill : Less Than 3 Seconds General Appearance: No Apparent Distress, WD/WN, Obese Respiratory: Lungs Clear, No Respiratory Distress Cardiovascular: Regular Rate, Rhythm, No Murmur Neurologic/Psychiatric: Alert, Oriented x3 Results/Procedures Lab Laboratory Tests 02/09/20 05:13 Patient resulted labs reviewed. Imaging: Reviewed Imaging Report Assessment/Plan Assessment and Plan Assess & Plan/Chief Complaint COVID19 intractable nausea and vomiting Dizziness Maintaining oxygen saturation on room air Zofran and Phenergan for nausea prn Continue IVF Continue regular diet as tolerates PT ordered Meclizine prn dizziness Add PPI NIDDMII BS improving SSI ordered Hold home metformin due to GI upset HTN BP within goal Continue lisinopril Hypokalemia Hypomagnesemia Replace K and Mag DVT ppx: lovenox Diagnosis/Problems Diagnosis/Problems (1) Coronavirus infection (2) Essential (primary) hypertension (3) Non-insulin dependent type 2 diabetes mellitus (4) Intractable nausea and vomiting (5) Prophylactic measure Clinical Quality Measures DVT/VTE Risk/Contraindication: Risk Factor Score Per Nursin RFS Level Per Nursing on Admit: 2=Moderate SHANELLE PARNELL MD Feb 09, 2020 12:18
[2020-02-09] MEDS: POTASSIUM CL 10MEQ/50ML IVPB 50 ML IV SCH ×2 (12:22→12:24)
[2020-02-09] MEDS: DEXAMETHASONE 4 MG TAB (DECADRON) PO SCH (12:22)
[2020-02-09] MEDS: MAGNESIUM 1 GM/100 ML IVPB 100 ML IV SCH (12:23)
[2020-02-09] MEDS ORDERED: PANTOPRAZOLE 20 MG TABLET (PROTONIX) PO NR (12:30)
[2020-02-09 16:46] VITALS: BP 140/82
--- NOTE | 2020-02-09 16:52 | NUR ---
DR PARNELL NOTIFIED OF BLOOD SUGAR AT 445. ORDER TO GIVE MAX AMOUNT OF INSULIN ON SLIDING SCALE.
[2020-02-09] MEDS: ACETAMINOPHEN 325 MG TABLET PO PRN (21:15)
[2020-02-10 00:20] VITALS: BP 163/90
[2020-02-10] MEDS: ENOXAPARIN 40 MG/0.4 ML (LOVENOX) SYR SC SCH (04:02)
[2020-02-10] MEDS: inSUlin ASPART (NovoLOG) 1 UNIT/0.01 ML (CHARGE PER UNIT) SC SCH ×2 (06:59→11:00)
[2020-02-10] MEDS: lisINopril 20 MG (PRINIVIL) TABLET PO SCH (08:03)
[2020-02-10 08:09] VITALS: BP 187/98
[2020-02-10] MEDS ORDERED: lisINopril 20 MG (PRINIVIL) TABLET PO ONE (08:15)
[2020-02-10] MEDS ORDERED: hydrALAZINE (APESOLINE) 20 MG/ML VIAL IV PRN (08:30)
[2020-02-10] MEDS ORDERED: FAMOTIDINE 20 MG (PEPCID) TABLET PO SCH (09:00)
[2020-02-10] MEDS ORDERED: PANTOPRAZOLE 20 MG TABLET (PROTONIX) PO SCH (09:00)
[2020-02-10] MEDS ORDERED: lisINopril 40 MG (PRINIVIL) TABLET PO SCH (09:00)
[2020-02-10] MEDS ORDERED: PANT20TA3 PO (11:45)
[2020-02-10] MEDS ORDERED: INSU100I10 SQ (11:45)
[2020-02-10] MEDS ORDERED: CALC300T4 PO (11:45)
--- NOTE | 2020-02-10 12:56 | NUR ---
Discharge instructions given along with insulin teaching using the teach back method at this time. Language line used. Patient verbalizes understanding of teaching. All questions answered at this time.
[2020-02-10 14:23] VITALS: BP 187/98
--- NOTE | 2020-02-10 20:21 | Discharge Summary ---
Discharge Summary Hospital Course Was the Problem List Reviewed?: Yes Problems/Dx: (1) COVID-19 Status: Acute (2) Coronavirus infection Status: Acute (3) Essential (primary) hypertension Status: Chronic (4) Intractable nausea and vomiting Status: Acute (5) T2DM (type 2 diabetes mellitus) Status: Acute Qualifiers: Qualified Codes: E11.65 - Type 2 diabetes mellitus with hyperglycemia Hospital Course Date of Admission: Feb 06, 2020 at 13:43 Admission Diagnosis : COVID-19 Family Physician/Provider: [place] Date of Discharge: 02/10/20 Discharge Diagnosis: COVID-19 Hospital Course: Soledad Fu is a 54-year-old female who presented with intractable nausea and vomiting related to COVID-19. She did not require any supplemental oxygen. Her nausea and vomiting improved. She was treated with steroids and developed a steroid-induced hyperglycemia. She normally takes metformin for her diabetes. Due to her GI issues her metformin was stopped and she was started on Levemir 10 units daily. She was started on pantoprazole for GERD. She was instructed to use Tums as needed for indigestion. She was discharged home in stable condition. She should follow-up with her primary care physician in about a week. Labs and Pending Lab Test: Laboratory Tests 02/09/20 21:02: Glucometer 359H 02/10/20 06:55: Glucometer 306H 02/10/20 10:19: Glucometer 469*H Microbiology 02/06/20 Urine Culture - Final, Complete Gram Pos Mixed Bacterial Estrella Enterococcus faecalis 02/06/20 Blood Culture - Preliminary, Resulted Staph, Coag Neg ([employer]) Home Meds Active Tums (Calcium Carbonate) 300 Mg Tab.chew 300 Mg PO TID PRN 30 Days Lantus Solostar (Insulin Glargine,Hum.rec.anlog) 100 Unit/1 Ml Insuln.pen 10 Un it SQ DAILY 30 Days Pantoprazole Sodium 20 Mg Tablet.dr 20 Mg PO DAILY 30 Days Reported Advil (Ibuprofen) 200 Mg Capsule 400 Mg PO Q8H PRN Lisinopril-Hctz 20-12.5 mg Tab (Lisinopril/Hydrochlorothiazide) 1 Each Tablet 1 Each PO DAILY LAST FILLED 10-21-2019 #30 THEN 09-20-2019 #90 Assessment/Pt Instructions Take medications as prescribed. Begin using Levemir 10 units daily. Follow-up with your primary care physician. Discharge Planning: <30 minutes discharge planning Discharge Instructions Discharge Diet: ADA Diet Activity as Tolerated: Yes Discharge Physical Examination Vital Signs Vital Signs Date Time Temp Pulse Resp B/P (MAP) Pulse Ox O2 Delivery O2 Flow Rate FiO2 02/10/20 14:23 36.4 51 18 187/98 98 Room Air General Appearance: No Apparent Distress, WD/WN HEENT: PERRL/EOMI, Pharynx Normal Respiratory: Lungs Clear, Normal Breath Sounds, No Respiratory Distress Cardiovascular: Regular Rate, Rhythm, No Edema, No Murmur Gastrointestinal: Normal Bowel Sounds, Non Tender, Soft Extremity: Normal Inspection, Non Tender, No Pedal Edema Skin: Normal Color, Warm/Dry Neurologic/Psychiatric: Alert, Oriented x3, No Motor/Sensory Deficits, Normal Mood/Affect Allergies: Coded Allergies: No Known Drug Allergies (Unverified , 02/06/20) Copy Copies To 1: [facility] Discharge Summary Date of Admission Feb 06, 2020 at 13:43 Date of Discharge Feb 10, 2020 at 14:24 Discharge Date: Feb 11, 2020 Discharge Time: 14:24 Admission Diagnosis COVID19 Discharge Diagnosis (1) COVID-19 Status: Acute (2) Coronavirus infection Status: Acute (3) Essential (primary) hypertension Status: Chronic (4) Intractable nausea and vomiting Status: Acute (5) T2DM (type 2 diabetes mellitus) Status: Acute Qualifiers: Qualified Codes: E11.65 - Type 2 diabetes mellitus with hyperglycemia Clinical Quality Measures DVT/VTE Risk/Contraindication: Risk Factor Score Per Nursin RFS Level Per Nursing on Admit: 2=Moderate ASHWINI OTTO MD Feb 10, 2020 20:21
== END 2020-02-10 14:24 | disposition home or self-care (01) | DRG 179 ==
LOC: ER 10:17 → 4TH 13:43
PROVIDERS: ADMIT Family Medicine; ATTEND Family Medicine
DX: U07.1 COVID-19 (principal); R11.2 Nausea with vomiting, unspecified; E11.65 Type 2 diabetes mellitus with hyperglycemia; I10 Essential (primary) hypertension; Z79.84 Long term (current) use of oral hypoglycemic drugs
CPT/HCPCS: 36415; 71045; 80048; 80053; 81000; 82962; 83605; 83735; 85025; 85027; 85610; 85730; 87040; 87077; 87088; 87186; 96361; 96372; 96374; 96375

== ENCOUNTER 2021-04-17 20:02 | Emergency (ER) | payer SELFPAY ==
[~2021-04-17] VITALS: Ht 149 cm; Wt 99.7 kg
[~2021-04-17 20:02] MED LIST: CALC300T4 PO; IBUP200C11 PO; INSU100I10 SQ; LISI1TAB46 PO; METF750T45 PO; PANT20TA18 PO
--- NOTE | 2021-04-17 20:12 | ED General ---
General Stated Complaint: N/V Source of Information: Patient Exam Limitations: No Limitations History of Present Illness Date Seen by Provider: Apr 17, 2021 Time Seen by Provider: 20:11 Initial Comments There was nausea and vomiting about 15 times today since 6 AM this morning. She ran out of her Victoza for a few weeks and just got it refilled yesterday and started taking it again. One of the side effects of course it is nausea and vomiting. No diarrhea. She does have some epigastric pain. Timing/Duration: 1-2 Days Severity: Moderate Associated Systoms: Denies Symptoms Allergies and Home Medications Allergies Coded Allergies: No Known Drug Allergies (Unverified , 02/06/20) Patient Home Medication List Home Medication List Reviewed: Yes Calcium Carbonate (Tums) 300 Mg Tab.chew, 300 MG PO TID PRN for INDIGESTION Prescribed by: ASHWINI OTTO on 02/10/20 1145 Ibuprofen (Advil) 200 Mg Capsule, 400 MG PO Q8H PRN for PAIN-MILD (1-4), (Reported) Entered as Reported by: TARIQ MEI on 02/07/20 1552 Insulin Glargine,Hum.rec.anlog (Lantus Solostar) 100 Unit/1 Ml Insuln.pen, 10 UNIT SQ DAILY Prescribed by: ASHWINI OTTO on 02/10/20 1145 Lisinopril/Hydrochlorothiazide (Lisinopril-Hctz 20-12.5 mg Tab) 1 Each Tablet, 1 EACH PO DAILY, (Reported) Entered as Reported by: SUNITA TAVERA on 02/06/20 1104 Pantoprazole Sodium (Pantoprazole Sodium) 20 Mg Tablet.dr, 20 MG PO DAILY Prescribed by: ASHWINI OTTO on 02/10/20 1145 Review of Systems Review of Systems Constitutional: see HPI EENTM: see HPI Respiratory: no symptoms reported Cardiovascular: no symptoms reported Genitourinary: no symptoms reported Musculoskeletal: no symptoms reported Skin: no symptoms reported Psychiatric/Neurological: No Symptoms Reported Hematologic/Lymphatic: No Symptoms Reported Immunological/Allergic: no symptoms reported Past Gvejltk-Foybaf-Umuyvk Hx Past Medical History Surgeries: No Respiratory: No Cardiac: No Hypertension Neurological: No Genitourinary: No Gastrointestinal: No Musculoskeletal: No Endocrine: Yes Diabetes, Non-Insulin dep Cancer: No Psychosocial: No Integumentary: No Family Medical History No Pertinent Family Hx Physical Exam Vital Signs Vital Signs - First Documented 04/17/21 20:05 Temp 36.4 Pulse 113 Resp 18 B/P (MAP) 189/105 (133) Pulse Ox 97 O2 Delivery Room Air Capillary Refill : Height, Weight, BMI Height: '" Weight: lbs. oz. kg; 49.42 BMI Method: General Appearance: No Apparent Distress, WD/WN Eyes: Bilateral Eye Normal Inspection, Bilateral Eye PERRL, Bilateral Eye EOMI Neck: Full Range of Motion, Normal Inspection Respiratory: Lungs Clear, Normal Breath Sounds, No Accessory Muscle Use, No Respiratory Distress Cardiovascular: Regular Rate, Rhythm, Normal Peripheral Pulses Gastrointestinal: Normal Bowel Sounds, Non Tender, Soft Extremity: Normal Capillary Refill, Normal Inspection Neurologic/Psychiatric: Alert, Oriented x3 Skin: Normal Color, Warm/Dry Progress/Results/Core Measures Suspected Sepsis SIRS Temperature: Pulse: Respiratory Rate: Laboratory Tests 04/17/21 20:09: White Blood Count 9.3 Blood Pressure / Mean: Laboratory Tests 04/17/21 20:09: Creatinine 0.79, Platelet Count 305, Total Bilirubin 1.1H Results/Orders Lab Results Laboratory Tests Test 04/17/21 20:09 04/17/21 20:44 Range/Units White Blood Count 9.3 4.3-11.0 10^3/uL Red Blood Count 5.57 H 3.80-5.11 10^6/uL Hemoglobin 15.7 11.5-16.0 g/dL Hematocrit 47 35-52 % Mean Corpuscular Volume 84 80-99 fL Mean Corpuscular Hemoglobin 28 25-34 pg Mean Corpuscular Hemoglobin Concent 34 32-36 g/dL Red Cell Distribution Width 13.8 10.0-14.5 % Platelet Count 305 130-400 10^3/uL Mean Platelet Volume 11.1 9.0-12.2 fL Immature Granulocyte % (Auto) 1 % Neutrophils (%) (Auto) 64 42-75 % Lymphocytes (%) (Auto) 24 12-44 % Monocytes (%) (Auto) 4 0-12 % Eosinophils (%) (Auto) 5 0-10 % Basophils (%) (Auto) 1 0-10 % Neutrophils # (Auto) 6.0 1.8-7.8 10^3/uL Lymphocytes # (Auto) 2.3 1.0-4.0 10^3/uL Monocytes # (Auto) 0.4 0.0-1.0 10^3/uL Eosinophils # (Auto) 0.5 H 0.0-0.3 10^3/uL Basophils # (Auto) 0.1 0.0-0.1 10^3/uL Immature Granulocyte # (Auto) 0.1 0.0-0.1 10^3/uL Sodium Level 144 135-145 MMOL/L Potassium Level 3.8 3.6-5.0 MMOL/L Chloride Level 104 98-107 MMOL/L Carbon Dioxide Level 25 21-32 MMOL/L Anion Gap 15 H 5-14 MMOL/L Blood Urea Nitrogen 16 7-18 MG/DL Creatinine 0.79 0.60-1.30 MG/DL Estimat Glomerular Filtration Rate 76 BUN/Creatinine Ratio 20 Glucose Level 192 H 70-105 MG/DL Calcium Level 10.0 8.5-10.1 MG/DL Corrected Calcium 8.5-10.1 MG/DL Total Bilirubin 1.1 H 0.1-1.0 MG/DL Aspartate Amino Transf (AST/SGOT) 17 5-34 U/L Alanine Aminotransferase (ALT/SGPT) 20 0-55 U/L Alkaline Phosphatase 89 40-136 U/L Total Protein 8.1 6.4-8.2 GM/DL Albumin 4.7 H 3.2-4.5 GM/DL Lipase 21 8-78 U/L Urine Color YELLOW Urine Clarity TURBID Urine pH 6.0 5-9 Urine Specific Lipan 1.025 H 1.016-1.022 Urine Protein 1+ H NEGATIVE Urine Glucose (UA) 2+ H NEGATIVE Urine Ketones 3+ H NEGATIVE Urine Nitrite NEGATIVE NEGATIVE Urine Bilirubin NEGATIVE NEGATIVE Urine Urobilinogen 1.0 < = 1.0 MG/DL Urine Leukocyte Esterase NEGATIVE NEGATIVE Urine RBC (Auto) NEGATIVE NEGATIVE Urine RBC NONE /HPF Urine WBC 5-10 H /HPF Urine Squamous Epithelial Cells 5-10 /HPF Urine Crystals NONE /LPF Urine Bacteria FEW H /HPF Urine Casts NONE /LPF Urine Mucus LARGE H /LPF Urine Yeast MODERATE H /HPF Urine Culture Indicated YES My Orders Orders - HUSSAIN SHARMA BINGO CASHIER Cbc With Automated Diff (04/17/21 20:05) Comprehensive Metabolic Panel (04/17/21 20:05) Lipase (04/17/21 20:05) Ua Culture If Indicated (04/17/21 20:05) Ed Iv/Invasive Line Start (04/17/21 20:05) Lactated Ringers (Lr 1000 Ml Iv Solution (04/17/21 20:15) Promethazine Injection (Phenergan Injec (04/17/21 20:15) Antacid Suspension (Mylanta Suspension (04/17/21 20:15) Lidocaine 2% Viscous 15 Ml (Xylocaine Vi (04/17/21 20:15) Urine Culture (04/17/21 20:44) Medications Given in ED Current Medications Medications Dose Ordered Sig/Angel Route Start Time Stop Time Status Last Admin Dose Admin Al Hydrox/Mg Hydrox/Simethicone 30 ml ONCE ONCE PO 04/17/21 20:15 04/17/21 20:17 DC 04/17/21 20:18 30 ML Lidocaine HCl 15 ml ONCE ONCE PO 04/17/21 20:15 04/17/21 20:17 DC 04/17/21 20:18 15 ML Promethazine HCl 25 mg ONCE ONCE IVP 04/17/21 20:15 04/17/21 20:17 DC 04/17/21 20:17 25 MG Vital Signs/I&O 04/17/21 04/17/21 20:05 20:38 Temp 36.4 Pulse 113 95 Resp 18 18 B/P (MAP) 189/105 (133) 149/100 Pulse Ox 97 94 O2 Delivery Room Air Room Air Capillary Refill : Departure Impression Primary Impression: Nausea and vomiting Additional Impression: Urinary tract infection Disposition: HOME, SELF-CARE Condition: Stable Departure-Patient Inst. Decision time for Depature: 21:32 Referrals: [facility] [place] (PCP/Family) Primary Care Physician Patient Instructions: Urinary Tract Infection, Adult (DC) Add. Discharge Instructions: 1. ER for any concerns 2. Follow-up with your doctor next week. Scripts Promethazine HCl (Promethazine Tablet) 25 Mg Tablet 25 MG PO Q8H PRN for NAUSEA/VOMITING, #14 TAB 0 Refills Prov: HUSSAIN SHARMA APRN 04/17/21 HUSSAIN SHARMA APRN Apr 17, 2021 20:12
[2021-04-17] MEDS ORDERED: ANTACID SUSP 30 ML UDC (MYLANTA) PO ONE (20:15)
[2021-04-17] MEDS ORDERED: LIDOCAINE 2% VISCOUS 15 ML UDC PO ONE (20:15)
[2021-04-17] MEDS ORDERED: LACTATED RINGERS 1,000 ML IV SCH (20:15)
[2021-04-17] MEDS ORDERED: PROMETHAZINE INJ 25 MG/ML (PHENERGAN) AMP IVP ONE (20:15)
[2021-04-17 20:18] LABS: BASOPHILS # (AUTO) 0.1 10^3/uL (0.0-0.1); BASOPHILS % (AUTO) 1 % (0-10); EOSINOPHILS # (AUTO) 0.5 10^3/uL (0.0-0.3); EOSINOPHILS % (AUTO) 5 % (0-10); HEMATOCRIT 47 % (35-52); HEMOGLOBIN 15.7 g/dL (11.5-16.0); LYMPHOCYTES # (AUTO) 2.3 10^3/uL (1.0-4.0); LYMPHOCYTES % (AUTO) 24 % (12-44); MEAN CORPUSCULAR HEMOGLOBIN 28 pg (25-34); MEAN CORPUSCULAR HGB CONC 34 g/dL (32-36); MEAN CORPUSCULAR VOLUME 84 fL (80-99); MEAN PLATELET VOLUME 11.1 fL (9.0-12.2); MONOCYTES # (AUTO) 0.4 10^3/uL (0.0-1.0); MONOCYTES % (AUTO) 4 % (0-12); NEUTROPHILS % (AUTO) 64 % (42-75); PLATELET COUNT 305 10^3/uL (130-400); WHITE BLOOD COUNT 9.3 10^3/uL (4.3-11.0)
[2021-04-17 20:39] LABS: ALANINE AMINOTRANSFERASE 20 U/L (0-55); ALBUMIN 4.7 GM/DL (3.2-4.5); ALKALINE PHOSPHATASE 89 U/L (40-136); BILIRUBIN,TOTAL 1.1 MG/DL (0.1-1.0); BUN/CREATININE RATIO 20; CARBON DIOXIDE 25 MMOL/L (21-32); CHLORIDE 104 MMOL/L (98-107); CREATININE SERUM 0.79 MG/DL (0.60-1.30); GFR ESTIMATED 76; GLUCOSE 192 MG/DL (70-105); LIPASE 21 U/L (8-78); POTASSIUM 3.8 MMOL/L (3.6-5.0); SODIUM 144 MMOL/L (135-145); TOTAL PROTEIN 8.1 GM/DL (6.4-8.2)
[2021-04-17 20:57] LABS: BILIRUBIN,URINE NEGATIVE (NEGATIVE); CLARITY,URINE TURBID; COLOR,URINE YELLOW; GLUCOSE, URINE (UA) 2+ (NEGATIVE); KETONES,URINE 3+ (NEGATIVE); LEUKOCYTE ESTERASE ,URINE NEGATIVE (NEGATIVE); NITRITE,URINE NEGATIVE (NEGATIVE); PROTEIN,URINE 1+ (NEGATIVE)
[2021-04-17 21:15] LABS: BACTERIA,URINE FEW /HPF; YEAST,URINE MODERATE /HPF
[2021-04-17] MEDS ORDERED: PROM25TA14 PO (21:34)
[2021-04-17] MEDS ORDERED: FLUCONAZOLE 150 MG TABLET (ED ONLY) PO ONE (21:45)
[2021-04-17] MEDS ORDERED: cefTRIAXone 1,000 MG in WATER (STERILE) FOR INJECTION 10 ML IV ONE (21:45)
[2021-04-17 21:53] VITALS: BP 126/83
== END 2021-04-17 21:55 | disposition home or self-care (01) ==
LOC: EDUNIT# 20:02 → ER 20:04
DX: R11.2 Nausea with vomiting, unspecified (principal); N39.0 Urinary tract infection, site not specified; I10 Essential (primary) hypertension; E11.9 Type 2 diabetes mellitus without complications; Z79.899 Other long term (current) drug therapy
CPT/HCPCS: 36415; 80053; 81000; 83690; 85025; 87088